=== PATIENT | female | born 1985 | race Caucasian/White ===

== ENCOUNTER 2023-11-21 16:05 | Emergency (ER) | payer OTHER ==
[~2023-11-21] VITALS: Ht 157.5 cm; Wt 71.0 kg
[2023-11-21 16:09] VITALS: O2SAT 98
[2023-11-21 16:14] VITALS: BP 148/89; PULSE 133; RESP 20; TEMP 98.7
[2023-11-21 16:38] LABS: BASOPHILS % 0.9 % (0.0-2.0); EOSINOPHILS % 2.8 % (0.0-5.0); HEMOGLOBIN. 9.1 g/dL (12.0-16.0); LYMPHOCYTES % 23.5 % (20.0-50.0); MEAN CORPUSCULAR HEMOGLOBIN 20.5 pg (28.0-32.0); MEAN CORPUSCULAR HGB CONC 30.4 g/dL (31.0-37.0); MEAN CORPUSCULAR VOLUME 67.2 fL (81.0-99.0); MEAN PLATELET VOLUME 9.3 fl (7.4-10.4); MONOCYTES % 6.7 % (2.0-8.0); NEUTROPHILS % 66.1 % (40.0-76.0); PLATELET 349 x1000/uL (130-400); RED BLOOD CELL COUNT 4.46 mill/uL (4.2-5.4); RED CELL DISTRIBUTION WIDTH 18.7 % (11.6-14.6); WHITE BLOOD COUNT 7.7 x1000/uL (4.5-11.0)
[2023-11-21 16:40] LABS: ADD RBC MORPHOLOGY YES; DIFFERENTIAL COMMENT 1
[2023-11-21 16:44] LABS: CHLORIDE 105 mEq/L (98-107); POTASSIUM 3.4 mEq/L (3.5-5.1); SODIUM 136 mEq/L (136-145)
[2023-11-21 16:45] LABS: CARBON DIOXIDE 24 mEq/L (21-32)
[2023-11-21 16:50] LABS: CREATININE 0.5 mg/dL (0.6-1.0); GLUCOSE 130 mg/dL (70-105); UREA NITROGEN BLOOD 9 mg/dL (9-23)
[2023-11-21 16:54] LABS: MICROCYTOSIS 3+; PLATELET ESTIMATE NORMAL; TROPONIN I HIGH SENSITIVITY < 4 ng/L (3.0-34)
[2023-11-21 16:55] LABS: ANISOCYTOSIS 1+; HYPOCHROMASIA 2+
[2023-11-21 17:39] LABS: HCG SCREEN NEGATIVE
== END 2023-11-21 18:15 | disposition home or self-care (01) ==
LOC: ER 16:05
DX: R00.2 Palpitations (principal); F41.9 Anxiety disorder, unspecified; D64.9 Anemia, unspecified
CPT/HCPCS: 36415; 71045; 80048; 80320; 84484; 84703; 85025; 93005; 99285; G0480